=== PATIENT | male | born 1970 | race African-American/Black ===

== ENCOUNTER 2021-08-02 23:56 | Emergency (ER) | payer SELFPAY ==
[~2021-08-02] VITALS: Ht 182.9 cm; Wt 130.0 kg
[2021-08-03 00:21] VITALS: BP 92/55
[2021-08-03] MEDS ORDERED: HYDROCODONE/ACETAMINOPHEN 5/325MG TABLET PO STA (01:06)
[2021-08-03] MEDS ORDERED: TETANUS, DIPHTHERIA, PERTUSSIS VAC/PF 0.5ML (>10YR OLD) IM ONE (01:15)
[2021-08-03] MEDS ORDERED: IBUP-2029 MT (03:26)
== END 2021-08-03 03:44 | disposition home or self-care (01) ==
LOC: ER 23:56
DX: S00.03XA Contusion of scalp, initial encounter (principal); S80.211A Abrasion, right knee, initial encounter; S39.91XA Unspecified injury of abdomen, initial encounter; S29.9XXA Unspecified injury of thorax, initial encounter; M54.59 Other low back pain; G89.11 Acute pain due to trauma; I10 Essential (primary) hypertension; V03.90XA Pedestrian on foot injured in collision with car, pick-up truck or van, unspecified whether traffic or nontraffic accident, initial encounter; Y93.01 Activity, walking, marching and hiking; Y92.488 Other paved roadways as the place of occurrence of the external cause
CPT/HCPCS: 71045; 72070; 72100; 72170; 73552; 73560; 73590; 73630; 90471; 90715; 99285